=== PATIENT | female | born 1985 | race Caucasian/White ===

== ENCOUNTER 2016-10-26 02:57 | Emergency (ER) | payer MEDICARE, BC ==
[~2016-10-26] VITALS: Ht 170.2 cm; Wt 69.0 kg
[2016-10-26 03:01] VITALS: Ht 170.2 cm; Wt 69.0 kg
--- NOTE | 2016-10-26 03:53 | ERD ---
ER Documentation Chief Complaint Date/Time DATE: 10/26/16 TIME: 03:50 Chief Complaint pain genital area, also c/o painful urination HPI 31-year-old female presents in emergency department for complaints of vaginal pain after rough intercourse yesterday. Patient was having sexual intercourse, had rough sex, complaining of vaginal pain throbbing pain, 6/10 scale, is worse upon urination. Patient denies any hematuria, vaginal bleeding. Patient denies any abdominal pain. Patient denies any vaginal discharge. Patient had protected sex. Patient was wearing a condom. ROS All systems reviewed and are negative except as per history of present illness. Medications Home Meds Reported Medications [none] Unknown Strength No Conflict Check 10/26/16 Allergies Allergies: Coded Allergies: No Known Drug Allergies (Verified Allergy, Unknown, 10/26/16) PMhx/Soc History of Surgery: Yes (BREAST REDUCTION) Anesthesia Reaction: No Hx Neurological Disorder: No Hx Respiratory Disorders: No Hx Cardiac Disorders: No Hx Psychiatric Problems: Yes (ANXIETY) Hx Miscellaneous Medical Probl: No Hx Alcohol Use: Yes Hx Substance Use: Yes (MARIJUANA) Hx Tobacco Use: Yes Smoking Status: Current every day smoker FmHx Family History: No coronary disease, No diabetes, No other Physical Exam Vitals Vital Signs Date Time Temp Pulse Resp B/P Pulse Ox O2 Delivery O2 Flow Rate FiO2 10/26/16 03:01 97.2 79 20 112/56 100 Physical Exam GENERAL: The patient is well developed and appropriate for usual state of health, in no apparent distress. CHEST: Clear to auscultation bilaterally. There are no rales, wheezes or rhonchi. HEART: Regular rate and rhythm. No murmurs, clicks, rubs or gallops. No S3 or S4. ABDOMEN: Soft, nontender and nondistended. Good bowel sounds. No rebound or guarding. No gross peritonitis. No gross organomegaly or masses. No Garcia sign or McBurney point tenderness. BACK: No midline or flank tenderness. EXTREMITIES: Equal pulses bilaterally. There is no peripheral clubbing, cyanosis or edema. No focal swelling or erythema. Full range of motion. Grossly neurovascularly intact. NEURO: Alert and oriented. Cranial nerves 2-12 intact. Motor strength in all 4 extremities with 5/5 strength. Sensation grossly intact. Normal speech and gait. SKIN: There is no apparent rash or petechia. The skin is warm and dry. HEMATOLOGIC AND LYMPHATIC: There is no evidence of excessive bruising or lymphedema. No gross cervical, axillary, or inguinal lymphadenopathy. VAGINAL: Normal external vaginal area, no lesions, no vaginal discharge, no CMT , no adnexal tenderness, no vaginal tears. Results 24 hrs Laboratory Tests Test 10/26/16 03:33 Urine Color LT. YELLOW Urine Clarity CLEAR Urine pH 6.0 Urine Specific [place] 1.020 Urine Ketones NEGATIVE Urine Nitrite NEGATIVE Urine Bilirubin NEGATIVE Urine Urobilinogen 0.2 E.U./dL Urine Leukocyte Esterase NEGATIVE Urine Microscopic RBC 0-2/HPF Urine Microscopic WBC NONE SEEN/HPF Urine Squamous Epithelial Cells MODERATE Urine Bacteria RARE Urine Hemoglobin TRACE Urine Glucose NEGATIVE% Urine Total Protein NEGATIVE Procedures/MDM Decision making: Patient symptoms most likely consistent with a vaginal contusion. Low suspicion for STD, patient was wearing condoms, no vaginal discharge, no CMT, no adnexal tenderness. Low suspicion for pelvic inflammatory disease. No lesions in the vaginal wall, no tears. Prescription was given for ibuprofen for pain, is advised to take medications as prescribed, patient is advised to see sex practices, patient is advised to return to emergency department for any worsening symptoms Departure Diagnosis: Primary Impression: Contusion of vagina Encounter type: initial encounter Qualified Code: S30.23XA - Contusion of vagina, initial encounter Condition: Stable Patient Instructions: Contusion, External Genital (Female) BALTAZAR TO NP Oct 26, 2016 03:53
[2016-10-26 04:21] LABS: ADD UMIC YES; URINE BILIRUBIN (Dip) NEGATIVE (NEGATIVE); URINE BLOOD (Dip) TRACE (NEGATIVE); URINE COLOR LT. YELLOW (YELLOW); URINE GLUCOSE (Dip) NEGATIVE (NEGATIVE); URINE KETONES (Dip) NEGATIVE (NEGATIVE); URINE LEUKOCYTE ESTERASE (Dip) NEGATIVE (NEGATIVE); URINE NITRITE (Dip) NEGATIVE (NEGATIVE); URINE TOTAL PROTEIN (Dip) NEGATIVE (NEGATIVE); URINE UROBILINOGEN (Dip) 0.2 E.U./dL (0.1-1.0)
[2016-10-26 04:42] LABS: SQUAMOUS EPITHELIAL CELL,UR MODERATE; URINE RBCS 0-2 /HPF (0)
[2016-10-26 04:43] LABS: BACTERIA,URINE RARE
[2016-10-26] MEDS ORDERED: IBUP-1542 PO (04:50)
== END 2016-10-26 05:00 | disposition home or self-care (01) ==
LOC: FTE 02:57
DX: S30.23XA Contusion of vagina and vulva, initial encounter (principal); F17.210 Nicotine dependence, cigarettes, uncomplicated; R10.2 Pelvic and perineal pain; X58.XXXA Exposure to other specified factors, initial encounter; Y92.9 Unspecified place or not applicable
CPT/HCPCS: 81001; 81003; 99283

== ENCOUNTER 2016-12-09 11:42 | Emergency (ER) | payer MEDICARE, BC ==
[~2016-12-09] VITALS: Ht 170.2 cm; Wt 65.5 kg
[~2016-12-09 11:42] MED LIST: IBUP-1542 PO
[2016-12-09 11:44] VITALS: Ht 170.2 cm; Wt 65.5 kg
[2016-12-09] MEDS ORDERED: ONDANSETRON 4 MG INJ IV STA (13:39)
[2016-12-09] MEDS ORDERED: KETOROLAC 30 MG INJ IV STA (13:39)
[2016-12-09] MEDS ORDERED: LORAZEPAM 2 MG INJ IV ONE (14:00)
[2016-12-09] MEDS ORDERED: SOD CHLORIDE 0.9% 1,000 ML IV ONE (14:00)
[2016-12-09 14:21] LABS: ADD SCAN DIFF NO
[2016-12-09 14:28] LABS: BASOPHIL # 0.1 10^3/ul (0.0-0.1); BASOPHILS % 0.6 % (0.0-2.0); EOSINOPHILS # 0.1 10^3/ul (0.0-0.5); EOSINOPHILS % 1.1 % (0.0-7.0); HEMATOCRIT 42.6 % (37.0-47.0); HEMOGLOBIN 14.2 g/dl (12.0-16.0); LYMPHOCYTES # 2.8 10^3/ul (0.8-2.9); MEAN CORPUSCULAR HEMOGLOBIN 30.5 pg (29.0-33.0); MEAN CORPUSCULAR HGB CONC 33.3 g/dl (32.0-37.0); MEAN CORPUSCULAR VOLUME 91.6 fl (82.0-101.0); MEAN PLATELET VOLUME 10.6 fl (7.4-10.4); MONOCYTE # 0.8 10^3/ul (0.3-0.9); MONOCYTES % 7.5 % (0.0-11.0); NEUTROPHILS % 64.3 % (39.0-77.0); PLATELET COUNT 451 10^3/UL (140-415); RED BLOOD COUNT 4.65 10^6/ul (4.20-5.40); RED CELL DISTRIBUTION WIDTH 12.5 % (11.5-14.5); WHITE BLOOD COUNT 10.8 10^3/ul (4.8-10.8)
[2016-12-09 14:32] LABS: ADD UMIC YES; URINE BILIRUBIN (Dip) NEGATIVE (NEGATIVE); URINE BLOOD (Dip) TRACE (NEGATIVE); URINE COLOR LT. YELLOW (YELLOW); URINE GLUCOSE (Dip) NEGATIVE (NEGATIVE); URINE KETONES (Dip) NEGATIVE (NEGATIVE); URINE LEUKOCYTE ESTERASE (Dip) NEGATIVE (NEGATIVE); URINE NITRITE (Dip) NEGATIVE (NEGATIVE); URINE TOTAL PROTEIN (Dip) NEGATIVE (NEGATIVE); URINE UROBILINOGEN (Dip) 0.2 E.U./dL (0.1-1.0)
[2016-12-09 14:50] LABS: SQUAMOUS EPITHELIAL CELL,UR OCCASIONAL; URINE RBCS 0-2 /HPF (0)
[2016-12-09 14:53] LABS: BILIRUBIN,INDIRECT 0.2 mg/dl (0-1.1); BILIRUBIN,TOTAL 0.2 mg/dl (0.2-1.3); CALCIUM 9.7 mg/dl (8.4-10.2); CREATININE 0.64 mg/dl (0.44-1.00); POTASSIUM 4.5 mmol/L (3.5-5.1); TOTAL PROTEIN 7.5 g/dl (6.1-8.1)
[2016-12-09 15:10] LABS: T3 UPTAKE 30.4 % (23.5-40.5)
[2016-12-09 15:24] LABS: THYROID STIMULATING HORMONE 1.17 MIU/L (0.465-4.680)
--- NOTE | 2016-12-09 16:34 | ERD ---
ER Documentation Chief Complaint Date/Time DATE: 12/09/16 TIME: 16:30 Chief Complaint FREQUENT URINATION, MIGRAINES, "FEELING DEHYDRATED" SOB HPI This is a 31-year-old female presents today with multiple complaints. She states that she has had thyroid problems in the past, and that she ran out of her medication over the last 3 days. Patient tried to get in to see her primary care provider however she could not. Patient is complaining of feeling dehydrated. She gets up in the middle of the night and urinates a lot and is always thirsty. Patient is also complaining of migraine headaches and shortness of breath. Patient denies any chest pain. Patient denies any dysuria. She denies any abdominal pain. She does admit some nausea however denies vomiting or diarrhea. Patient denies any fevers or chills. Patient has a past medical history of anxiety and is extremely anxious. ROS 12 point review of systems was done, all negative except per HPI. Medications Home Meds Active Scripts Ibuprofen* (Motrin*) 600 Mg Tab, 600 MG PO Q6H Y for PAIN AND OR ELEVATED TEMP, #30 TAB Prov:BALTAZAR TO NP 10/26/16 Reported Medications [none] Unknown Strength No Conflict Check 10/26/16 Allergies Allergies: Coded Allergies: No Known Drug Allergies (Verified Allergy, Unknown, 10/26/16) PMhx/Soc History of Surgery: Yes (BREAST REDUCTION) Anesthesia Reaction: No Hx Neurological Disorder: No Hx Respiratory Disorders: No Hx Cardiac Disorders: No Hx Psychiatric Problems: Yes (ANXIETY) Hx Miscellaneous Medical Probl: No Hx Alcohol Use: Yes Hx Substance Use: Yes (MARIJUANA) Hx Tobacco Use: Yes Smoking Status: Never smoker Physical Exam Vitals Vital Signs Date Time Temp Pulse Resp B/P Pulse Ox O2 Delivery O2 Flow Rate FiO2 12/09/16 11:44 98.3 100 24 116/61 96 Physical Exam GENERAL: Patient is extremely anxious and switches her mood from happy to anxious within a matter of a few seconds. HEENT: Atraumatic. pupils are equal, round and reactive to light. no exophthalmos CHEST: Clear to auscultation bilaterally. There are no rales, wheezes or rhonchi. HEART: Regular rate and rhythm. No murmurs, clicks, rubs or gallops. ABDOMEN: Soft, nontender and nondistended. BACK: No midline or flank tenderness. EXTREMITIES: no leg pain, redness or swelling. NEURO: Alert and oriented. cn 2-12 are intact. negative rhomberg. SKIN: There is no apparent rash or petechia. The skin is warm and dry. Result Diagram: 12/09/16 1402 12/09/16 1402 Results 24 hrs Laboratory Tests Test 12/09/16 13:26 12/09/16 14:02 Urine Color LT. YELLOW Urine Clarity CLEAR Urine pH 6.0 Urine Specific [place] <=1.005 Urine Ketones NEGATIVE Urine Nitrite NEGATIVE Urine Bilirubin NEGATIVE Urine Urobilinogen 0.2 E.U./dL Urine Leukocyte Esterase NEGATIVE Urine Microscopic RBC 0-2/HPF Urine Microscopic WBC NONE SEEN/HPF Urine Squamous Epithelial Cells OCCASIONAL Urine Hemoglobin TRACE Urine Glucose NEGATIVE% Urine Total Protein NEGATIVE White Blood Count 10.810^3/ul Red Blood Count 4.6510^6/ul Hemoglobin 14.2g/dl Hematocrit 42.6% Mean Corpuscular Volume 91.6fl Mean Corpuscular Hemoglobin 30.5pg Mean Corpuscular Hemoglobin Concent 33.3g/dl Red Cell Distribution Width 12.5% Platelet Count 91921^3/UL Mean Platelet Volume 10.6fl Neutrophils % 64.3% Lymphocytes % 26.0% Monocytes % 7.5% Eosinophils % 1.1% Basophils % 0.6% Nucleated Red Blood Cells % 0.0/100WBC Neutrophils # 7.010^3/ul Lymphocytes # 2.810^3/ul Monocytes # 0.810^3/ul Eosinophils # 0.110^3/ul Basophils # 0.110^3/ul Nucleated Red Blood Cells # 0.010^3/ul Sodium Level 142mmol/L Potassium Level 4.5mmol/L Chloride Level 102mmol/L Carbon Dioxide Level 29mmol/L Anion Gap 16 Blood Urea Nitrogen 11mg/dl Creatinine 0.64mg/dl Glucose Level 83mg/dl Calcium Level 9.7mg/dl Total Bilirubin 0.2mg/dl Direct Bilirubin 0.00mg/dl Indirect Bilirubin 0.2mg/dl Aspartate Amino Transf (AST/SGOT) 26IU/L Alanine Aminotransferase (ALT/SGPT) 47IU/L Alkaline Phosphatase 75IU/L Total Protein 7.5g/dl Albumin 5.0g/dl Globulin 2.50g/dl Albumin/Globulin Ratio 2.00 Thyroid Stimulating Hormone (TSH) 1.170MIU/L Free Thyroxine Index 2.04ug/ml Thyroxine (T4) 6.7ug/dl Triiodothyronine (T3) Uptake 30.4% Current Medications Medications (Trade) Dose Ordered Sig/Dilip Route PRN Reason Start Time Stop Time Status Last Admin Dose Admin Sodium Chloride (NS) 1,000 ml @ 1,000 mls/hr Q1H ONCE IV 12/09/16 14:00 12/09/16 14:59 DC 12/09/16 14:09 Lorazepam (Ativan) 1 mg ONCE ONCE IV 12/09/16 14:00 12/09/16 14:01 DC 12/09/16 14:10 Ondansetron HCl (Zofran Inj) 4 mg ONCE STAT IV 12/09/16 13:39 12/09/16 13:45 DC 12/09/16 14:09 Ketorolac Tromethamine (Toradol) 30 mg ONCE STAT IV 12/09/16 13:39 12/09/16 13:45 DC 12/09/16 14:09 Procedures/MDM EKG was done [address] elevation or t wave inversions. Patient refused chest xray. This is a 31-year-old female presents to the ER with multiple complaints. Differential diagnosis includes but is not limited to; hyperthyroidism, hypothyroidism, Manlius's disease, thyroid storm, myxedema coma. At this time patient's thyroid panel is completely normal there is no evidence of hypo-or hyperthyroidism. In terms of patient's extreme thirst there is no evidence of diabetes or any electrolyte abnormality to suggest dehydration or other endocrine abnormalities. In regards to patient's headaches, this is more of a chronic problem, and her pain was controlled here in the ER. Suspicion for acute intracranial pathology is low as her neurological exam is normal with no focal neurological deficits. Patient is extremely anxious with sudden changes in mood. Patient is afebrile and her vital signs are normal. Patient needs to follow-up with her primary care doctor within 1-2 days and continue to follow- up with her lens dotter. Unfortunately I am not able to get a urgent lens dotter consultation as patient's lab work is completely normal. I did give patients the names and locations of some lens dotter which they can call. Patient needs to return to ER sooner if symptoms worsen. I shared my medical decision making with the patient she understands and agrees with plan. Departure Diagnosis: Primary Impression: Increased thirst Additional Impression: Multiple complaints Condition: Stable Patient Instructions: Common Thyroid Problems Referrals: JEN GONZALEZ NICHOLAS PERLEY, MICHAEL J. Additional Instructions: Call your primary care doctor TOMORROW for an appointment during the next 1-2 days.See the doctor sooner or return here if your condition worsens before your appointment time. NETO HINKLE Dec 09, 2016 16:34
== END 2016-12-09 16:30 | disposition home or self-care (01) ==
LOC: FTE 11:42
DX: R63.1 Polydipsia (principal); F41.9 Anxiety disorder, unspecified; R06.02 Shortness of breath
CPT/HCPCS: 80053; 81001; 84436; 84443; 84479; 85025; 93005; 96374; 96375; 99284; J1885; J2060; J2405; J7030